=== PATIENT | female | born 1935 | race Caucasian/White ===

== ENCOUNTER 2017-07-13 13:19 | Inpatient (IN) ==
[2017-07-13] MEDS ORDERED: ONDANSETRON 4 MG/2 ML INJECTION IVP PRN (13:48)
[2017-07-13] MEDS ORDERED: ACETAMINOPHEN 325 MG TABLET PO PRN (13:49)
[2017-07-13] MEDS ORDERED: BISACODYL 10 MG SUPPOSITORY RECTALLY PRN (13:49)
[2017-07-13] MEDS ORDERED: HYDROCODONE/APAP 5mg/325mg TABLET PO PRN ×2 (13:50→14:57)
[2017-07-13] MEDS ORDERED: MORPHINE SULFATE 2 MG SYRINGE IVP PRN (13:51)
[2017-07-13] MEDS ORDERED: ENOXAPARIN 100 MG/ML INJECTION SQ SCH (14:00)
[2017-07-13 14:34] VITALS: BMI 34.2
[2017-07-13 14:36] VITALS: RESP 18
[2017-07-13] MEDS ORDERED: LORATADINE 10 MG TABLET PO PRN (14:57)
[2017-07-13] MEDS ORDERED: GUAIFENESIN LA 600 MG TABLET PO PRN (14:57)
[2017-07-13] MEDS ORDERED: Bisacodyl EC TAB 5 MG TABLET PO PRN (14:57)
[2017-07-13] MEDS ORDERED: NITROGLYCERIN 0.4 MG SUBLINGUAL TABLET SL PRN (14:57)
--- NOTE | 2017-07-13 15:20 | History & Physical Report ---
<Carol Ann Roberto V - Last Filed: 07/13/17 15:17> History of Present Illness Date: 07/13/17 Chief complaint: Bilateral PE HPI: Kristyn is a pleasant 81-year-old female who presented to see her primary care provider, Dr. Pérez today for evaluation of dyspnea. She reports that it has been ongoing for the past several weeks. She does have some right posterior chest wall discomfort. She has been checking her oxygen saturations at home and reports that readings are in the 80s following minimal exertion. Given this persistent symptom, accompanied with her increased dyspnea. She was evaluated acutely today. Outpatient CT scan of the chest was performed of that unfortunately did reveal large amount of bilateral pulmonary emboli as well as a left lower lobe consolidation. Ambulatory oximetry obtained in the clinic, O2 sats 87% on room air. Even these findings. Patient was directed to [facility] for direct admission under care of Dr. Majano for further evaluation and treatment. On arrival Kristyn is seen and examined. She does note has been short of breath for several weeks. She reports that in April she did take a seven-day road trip and drove to the [facility]. Has not noticed any lower extremity pain. Patient reports she does take aspirin 650 milligrams daily for chronic anticoagulation and reports this is for her "atrial fibrillation". She also reports that she is has not been in atrial fibrillation for an unknown amount of time. She did undergo a CABG in 2016 and at that time did have a right-sided pneumothorax. 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 We did review advanced directives and she does verify her wishes to be a full code. Review of Systems Comprehensive ROS: completed and no additional positive findings except those as stated - Constitutional Constitutional: Present: fatigue - Cardiovascular Cardiovascular: Present: dyspnea on exertion - Respiratory Respiratory: Present: dyspnea PFSH Patient Stated Medical History History of atrial fibrillation Hypertension Coronary artery disease Dyslipidemia Peripheral artery disease. Next, and osteoarthritis. 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 Hysterectomy-total. Appendectomy. Tonsillectomy. Colonoscopy Family History: Father.-Brain cancer Mother-congestive heart failure Sister-leukemia - Social History Smoking status: Former smoker (quit 7 years ago) Substance use type: does not use Alcohol intake frequency: does not drink Current residence: Apartment/Private Home Social history: Primary care provider, Dr. Jo. 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 Silverio Medications Home Medications Medication Instructions Recorded Confirmed Type Dronedarone [Multaq] 400 mg PO BID #180 07/24/15 07/13/17 History Losartan Potassium 50 mg PO DAILY #30 07/24/15 07/13/17 History Sertraline HCl 50 mg PO DAILY #90 07/24/15 07/13/17 History Hydralazine [Apresoline] 25 mg PO BID 06/05/17 07/13/17 History Isosorbide Dinitrate [Isordil] 10 mg PO BID 06/05/17 07/13/17 History Lansoprazole [Prevacid] 30 mg PO DAILY 06/05/17 07/13/17 History Aspirin [ASA] 2 tab PO DAILY 07/13/17 07/13/17 History Bisacodyl EC Tab [Dulcolax] 5 mg PO PRN PRN 07/13/17 07/13/17 History Loratadine 10 mg PO PRN PRN 07/13/17 07/13/17 History Milk of Magnesia [Mom] 30 ml PO PRN 07/13/17 07/13/17 History Miralax 17 gm PO PRN PRN 07/13/17 07/13/17 History Nitroglycerin [Nitrostat] 0.4 mg SL PRN PRN 07/13/17 07/13/17 History Prevacid 30 mg PO DAILY 07/13/17 07/13/17 History guaiFENesin [Mucinex] 600 mg PO PRN PRN 07/13/17 07/13/17 History Allergies Allergy/AdvReac Type Severity Reaction Status Date / Time codeine Allergy Severe Unconscious Verified 06/05/17 12:32 meloxicam Allergy Intermediate Verified 06/05/17 12:32 Penicillins Allergy Intermediate RASH Verified 06/05/17 12:32 meperidine Allergy Unknown Verified 06/05/17 12:32 tetracycline Allergy Unknown Verified 06/05/17 12:32 [id number] Reductase Allergy troubles Verified 07/13/17 14:23 Inhibitor breathing diphenhydramine AdvReac Intermediate Redness of Verified 06/05/17 12:37 Skin Unclassified Drug Allergy Severe LOCAL Uncoded 07/26/16 16:04 ANESTHETIC Exam Vital Signs: Temperature 95.9 F L 07/13/17 14:21 Pulse Rate 62 07/13/17 14:21 Respiratory Rate 18 07/13/17 14:21 Blood Pressure 122/68 07/13/17 14:21 Pulse Oximetry 92 07/13/17 14:21 Height/Weight/BMI: Height 1.6 m Weight 87.5 kg Body Mass Index 34.2 - Constitutional Present: no acute distress - Routine HEENT Exam Head: Present: normocephalic Eye: Present: EOMI ENT: Present: mucous membranes moist, dentition normal - Routine Respiratory Exam Present: CTA bilaterally - Routine Cardiovascular Exam Present: RRR, S1, S2 - Routine Abdominal Exam Present: soft, normoactive bowel sounds, non distended. Absent: tenderness - Routine Extremities Exam Present: edema (trace bilateral lower ext), normal capillary refill - Routine Back/Spine/Pelvis Exam Back/Spine: Present: full ROM - Routine Skin Exam Present: intact, dry, warm - Routine Neurological Exam Present: alert, oriented X3, CN II-XII intact, moving all extremities - Routine Psychiatric Exam Present: normal affect, normal thought process Assessment and Plan (1) Bilateral pulmonary embolism Current visit: Yes Status: Acute (2) Atrial fibrillation Current visit: Yes Status: Acute (3) HTN (hypertension) Current visit: Yes Status: Acute (4) Coronary artery disease Current visit: Yes Status: Acute (5) History of post-polio syndrome Current visit: Yes Status: Acute (6) PAD (peripheral artery disease) Current visit: Yes Status: Acute (7) GERD (gastroesophageal reflux disease) Current visit: Yes Status: Acute (8) Dyslipidemia Current visit: Yes Status: Acute DVT Prophylaxis: Lovenox Resuscitation Status: Full Code Assessment and Plan: Admit patient to outpatient observation and care of Dr. Majano for bilateral pulmonary emboli and hypoxia with exertion. Will obtain the following lab for studies on admission, CBC, CMP, INR, magnesium , troponin, urinalysis. Will obtain a 12-lead EKG to rule out ischemia given multiple bilateral pulmonary emboli. Monitor patient. Cardiac telemetry. Detailed discussion with patient and regarding chronic anticoagulation plans. Will initiate Lovenox 130 milligrams subcutaneous daily. They would like to consult with family members who are in the healthcare setting regarding Xarelto versus warfarin. Will discuss with them later. Monitor blood pressure and continue on current regimen of multi, isosorbide, Cozaar. Will monitor oxygen saturations and utilize O2 as needed. At rest, oxygen saturations 90-91% during examination. Likely need to evaluate ambulatory oximetry as patient may require home oxygen. Tylenol or morphine as needed for pain control. Recheck CBC and BMP tomorrow morning Discuss further orders and plan of care with attending, Dr. Majano Time of discharge medical care will return to primary care provider, Dr. Pérez Sepsis Assessment - Evaluation Sepsis screening result: No Definite Risk Hospital Course Summary Disclaimer: The visit summary below is not to be considered part of the above Progress Note. Hospital Course: 07/13/17 initial admission Admit patient to outpatient observation and care of Dr. Majano for bilateral pulmonary emboli and hypoxia with exertion. Will obtain the following lab for studies on admission, CBC, CMP, INR, magnesium , troponin, urinalysis. Will obtain a 12-lead EKG to rule out ischemia given multiple bilateral pulmonary emboli. Monitor patient. Cardiac telemetry. Detailed discussion with patient and regarding chronic anticoagulation plans. Will initiate Lovenox 130 milligrams subcutaneous daily. They would like to consult with family members who are in the healthcare setting regarding Xarelto versus warfarin. Will discuss with them later. Monitor blood pressure and continue on current regimen of multi, isosorbide, Cozaar. Will monitor oxygen saturations and utilize O2 as needed. At rest, oxygen saturations 90-91% during examination. Likely need to evaluate ambulatory oximetry as patient may require home oxygen. Tylenol or morphine as needed for pain control. Recheck CBC and BMP tomorrow morning Discuss further orders and plan of care with attending, Dr. Majano Time of discharge medical care will return to primary care provider, Dr. Pérez <Kyle Majano - Last Filed: 07/13/17 18:08> History of Present Illness Date: 07/13/17 [facility] Patient Stated Medical History Other HEENT Yes: WEARS GLASSES Cardiac Arrhythmia Yes: AFIB Coronary Artery Disease Yes Hypertension Yes Myocardial Infarction Yes Valvular Heart Disease Yes Other Respiratory Yes: PNEUMOTHORAX AFTER CABG Ulcer Yes Other GI Yes: DIVERTICULITIS,ISCHEMIC COLITIS Shingles Yes Other Infectious Yes: HX OF POLIO Exam Vital Signs: Temperature 95.5 F L 07/13/17 16:00 Pulse Rate 57 L 07/13/17 16:00 Respiratory Rate 18 07/13/17 16:00 Blood Pressure 149/75 H 07/13/17 16:00 Pulse Oximetry 90 07/13/17 16:00 Height/Weight/BMI: Height 1.6 m Weight 87.5 kg Body Mass Index 34.2 Results - Labs CBC & Chem 7: 07/13/17 15:34 07/13/17 15:34 Assessment and Plan (1) Bilateral pulmonary embolism Current visit: Yes Status: Acute (2) Atrial fibrillation Current visit: Yes Status: Acute (3) HTN (hypertension) Current visit: Yes Status: Acute (4) Coronary artery disease Current visit: Yes Status: Acute (5) History of post-polio syndrome Current visit: Yes Status: Acute (6) PAD (peripheral artery disease) Current visit: Yes Status: Acute (7) GERD (gastroesophageal reflux disease) Current visit: Yes Status: Acute (8) Dyslipidemia Current visit: Yes Status: Acute Assessment and Plan: Assessment Bilateral pulmonary embolism Dyspnea with exertion Atrial fibrillation HTN (hypertension) Coronary artery disease History of post-polio syndrome PAD (peripheral artery disease) GERD (gastroesophageal reflux disease) Dyslipidemia History of post-polio syndrome Have independently interviewed and examined pt. Chart reviewed. 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 Care plan developed with my supervision; agree with above. Presents to clinic secondary to increasing SOA. Noticed over the last 10 days of so she id more winded with activities. Very hard to walk up the stairs without developing SOA and tachycardia. No cough or congestion. Denies pain with breathing. No f/c. Was seen in ED on 06/05 secondary to flank and back pain - very miserable at that time but improved. Really doing well until last 10 days. Reports eating well. Stools stable. Urinating well. Did see Dr Pérez in clinic today - CT PE protocol showed numerous bilateral PE. Admitted to inpatient for treatment and respiratory monitoring. Lungs: decreased CV: regular AB: soft nt/nd +BS MSE: awake alert appropriate Plan: Inpatient admission to [facility] for treatment of Bilateral pulmonary emboli - anticipate greater than 2 midnights of care needed. Start Lovenox due to PE. 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 They are favoring Xarelto. Will need 15mg BID with meals for 21 day before changing to 20mg with supper. Control pain. Monitor oxygenation - very surprising pt maintaining saturations as well as see is with the emboli burden. Will need to evaluate for home O2 needs prior to discharge. ECHO due to cardiomegaly seen on CTA - suspect right heart strain from PE. Will give 1L on 1/2 NS at 75cc/hr to help provide renal protection from IV dye load given earlier today. Recheck Lab in am. Hospital Course Summary Disclaimer: The visit summary below is not to be considered part of the above Progress Note.
[2017-07-13] MEDS ORDERED: ENOXAPARIN 150 MG/ML INJECTION SQ SCH (15:30)
[2017-07-13] MEDS ORDERED: 1/2 NS 1,000 ML IV SCH (17:45)
[2017-07-13] MEDS: --POM--HYDRALAZINE 25 MG TABLET PO SCH (19:16)
[2017-07-13] MEDS: DRONEDARONE 400 MG PO SCH (21:21)
[2017-07-13] MEDS: ISOSORBIDE DINITRATE 10 MG TABLET PO SCH (21:27)
[2017-07-14] MEDS ORDERED: --POM--PANTOPRAZOLE 40 MG TABLET PO SCH (06:30)
[2017-07-14 08:00] VITALS: BP 165/87; TEMP 97.7
[2017-07-14] MEDS ORDERED: RIVAROXABAN 15 MG TABLET PO SCH (08:30)
[2017-07-14] MEDS: --POM--HYDRALAZINE 25 MG TABLET PO SCH (08:31)
[2017-07-14] MEDS: ISOSORBIDE DINITRATE 10 MG TABLET PO SCH ×2 (08:33→13:50)
[2017-07-14] MEDS: DRONEDARONE 400 MG PO SCH (08:34)
[2017-07-14] MEDS ORDERED: SERTRALINE 50 MG PO SCH (09:00)
[2017-07-14] MEDS ORDERED: --POM--LOSARTAN 50 MG TABLET PO SCH (09:00)
[2017-07-14 10:04] VITALS: PULSE 68; O2SAT 94
--- NOTE | 2017-07-14 14:41 | Progress Note ---
Subjective: F/U: Bilateral pulmonary emboli, dyspnea with exertion. Doing much better today. Breathing feels easier. Still notes SOA with activities , but improved from yesterday. No pain with breathing. Denies cough or congestion. No chest pain. Eating well. No ab pain or discomfort. Ambulating well. Feels ready for discharge to home. Objective Vital signs: Temperature 97.7 F 07/14/17 07:58 Pulse Rate 68 07/14/17 09:59 Respiratory Rate 18 07/14/17 07:58 Blood Pressure 165/87 H 07/14/17 07:58 Pulse Oximetry 94 07/14/17 09:59 Height/Weight/BMI: Height 1.6 m Weight 86.4 kg Body Mass Index 34.2 - Constitutional Present: no acute distress, well nourished, well developed, obese, cooperative - Routine HEENT Exam Head: Present: normocephalic, atraumatic Eye: Present: EOMI, PERRL ENT: Present: mucous membranes moist - Routine Respiratory Exam Present: decreased breath sounds, distant breath sounds. Absent: respiratory distress, wheezes, crackles - Routine Cardiovascular Exam Present: RRR - Routine Abdominal Exam Present: soft, normoactive bowel sounds, non distended, non tender - Routine Extremities Exam Present: cyanosis, clubbing. Absent: no edema - Routine Musculoskeletal Exam Musculoskeletal: Present: no clubbing or cyanosis, normal strength - Routine Skin Exam Present: intact, warm, normal turgor - Routine Neurological Exam Present: alert, oriented X3, CN II-XII intact, vision grossly intact, hearing grossly intact. Absent: motor deficit - Routine Psychiatric Exam Present: normal affect, normal thought process, cooperative, good insight, good judgment Results - Labs CBC & Chem 7: 07/14/17 04:40 07/14/17 04:40 Assessment and Plan (1) Bilateral pulmonary embolism Current visit: Yes Status: Acute (2) Atrial fibrillation Current visit: Yes Status: Acute (3) HTN (hypertension) Current visit: Yes Status: Acute (4) Coronary artery disease Current visit: Yes Status: Acute (5) History of post-polio syndrome Current visit: Yes Status: Acute (6) PAD (peripheral artery disease) Current visit: Yes Status: Acute (7) GERD (gastroesophageal reflux disease) Current visit: Yes Status: Acute (8) Dyslipidemia Current visit: Yes Status: Acute DVT Prophylaxis: Xarelto Assessment and Plan: Assessment Bilateral pulmonary embolism Dyspnea with exertion Atrial fibrillation HTN (hypertension) Coronary artery disease History of post-polio syndrome PAD (peripheral artery disease) GERD (gastroesophageal reflux disease) Dyslipidemia History of post-polio syndrome Plan Xarelto stared this morning for treatment of PE. Discussed with patient and her the signs and symptoms of bleeding to watch from. Evaluated for home O2 needs. Patient maintaining saturations on room air with both rest and activities. Did not meet criteria for home oxygen. Encouraged increasing activities as able - resting if gets tired and winded. Conditioning should improve gradually with time. Will discharge patient to home - follow up with Dr Pérez in 1 week. ECHO pending - can follow up with Dr Pérez See orders for details. Time spent with patient care and discharger greater than 30 minutes. - Time spent with patient discharge greater than 30 minutes Sepsis Assessment - Evaluation Sepsis screening result: No Definite Risk Hospital Course Summary Disclaimer: The visit summary below is not to be considered part of the above Progress Note. Hospital Course: 07/13/17 initial admission Admit patient to outpatient observation and care of Dr. Majano for bilateral pulmonary emboli and hypoxia with exertion. Will obtain the following lab for studies on admission, CBC, CMP, INR, magnesium , troponin, urinalysis. Will obtain a 12-lead EKG to rule out ischemia given multiple bilateral pulmonary emboli. Cardiac telemetry and continuous oximetry. Detailed discussion with patient and regarding chronic anticoagulation plans. Will initiate Lovenox 130 milligrams subcutaneous daily. They would like to consult with family members who are in the healthcare setting regarding Xarelto versus warfarin. Will discuss with them later. Monitor blood pressure and continue on current regimen of Multaq, isosorbide, Cozaar. Will monitor oxygen saturations and utilize O2 as needed. At rest, oxygen saturations 90-91% during examination. Need to evaluate ambulatory oximetry as patient may require home oxygen due to bilateral pulmonary emboli. Tylenol or morphine as needed for pain control. Recheck CBC and BMP tomorrow morning. At time of discharge, medical care will return to primary care provider, Dr. Pérez. 07/14/17 Xarelto stared this morning for treatment of PE. Discussed with patient and her the signs and symptoms of bleeding to watch from. Evaluated for home O2 needs. Patient maintaining saturations on room air with both rest and activities. Did not meet criteria for home oxygen. Encouraged increasing activities as able - resting if gets tired and winded. Conditioning should improve gradually with time. Will discharge patient to home - follow up with Dr Pérez in 1 week. ECHO pending - can follow up with Dr Pérez See orders for details.
--- NOTE | 2017-07-14 14:59 | Discharge Summary ---
Discharge Information Date of admission: 07/14/17 Anticipated date of discharge: 07/14/17 Attending Physician: Kyle Majano MD Primary care physician: Blaine Pérez MD - Discharge Diagnosis Discharge Diagnosis: Bilateral pulmonary embolism Associated conditions and complications Dyspnea with exertion Atrial fibrillation HTN (hypertension) Coronary artery disease History of post-polio syndrome PAD (peripheral artery disease) GERD (gastroesophageal reflux disease) Dyslipidemia History of post-polio syndrome - Procedures Procedures: ECHO - result pending at discharge. - Laboratory Labs: Admit Lab 07/13/17 07/13/17 07/13/17 15:34 15:34 15:34 WBC 8.6 Hgb 12.6 Hct 38.8 MCV 91.5 Plt Count 192 Neut % (Auto) 72.0 H Lymph % (Auto) 19.2 L INR 1.12 Sodium 142 Potassium 4.5 Chloride 107 Carbon Dioxide 23 BUN 23.0 H Creatinine 1.0 GFR Calculation 53 Glucose 126 H Calculated Osmolality 279 Calcium 9.0 Magnesium 2.2 Total Bilirubin 0.60 AST 26 ALT 24 Troponin I < 0.012 07/14/17 04:40 07/14/17 04:40 - Radiology Radiology: Date of Exam: 07/13/17 Type of Exam: CT angio pulm emboli Impression: 1. Large amount of bilateral pulmonary embolus. No obvious CT evidence of right heart strain, however urgent cardiology evaluation is recommended. 2. Left lower lobe consolidation could represent atelectasis, pneumonia, pulmonary hemorrhage or developing pulmonary infarct. History of Present Illness HPI: Kristyn is a pleasant 81-year-old female who presented to see her primary care provider, Dr. Pérez today for evaluation of dyspnea. She reports that it has been ongoing for the past several weeks. She does have some right posterior chest wall discomfort. She has been checking her oxygen saturations at home and reports that readings are in the 80s following minimal exertion. Given this persistent symptom, accompanied with her increased dyspnea. She was evaluated acutely today. Outpatient CT scan of the chest was performed of that unfortunately did reveal large amount of bilateral pulmonary emboli as well as a left lower lobe consolidation. Ambulatory oximetry obtained in the clinic, O2 sats 87% on room air. Even these findings. Patient was directed to [facility] for direct admission under care of Dr. Majano for further evaluation and treatment. On arrival rKistyn is seen and examined. She does note has been short of breath for several weeks. She reports that in April she did take a seven-day road trip and drove to the [facility]. Has not noticed any lower extremity pain. Patient reports she does take aspirin 650 milligrams daily for chronic anticoagulation and reports this is for her "atrial fibrillation". She also reports that she is has not been in atrial fibrillation for an unknown amount of time. She did undergo a CABG in 2016 and at that time did have a right-sided pneumothorax. 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 We did review advanced directives and she does verify her wishes to be a full code. For complete details of the H&P refer to that document. Objective Vital signs: Temperature 97.7 F 07/14/17 07:58 Pulse Rate 68 07/14/17 09:59 Respiratory Rate 18 07/14/17 07:58 Blood Pressure 165/87 H 07/14/17 07:58 Pulse Oximetry 94 07/14/17 09:59 Height/Weight/BMI: Height 1.6 m Weight 86.4 kg Body Mass Index 34.2 Hospital Course This is a general summary of the patient's hospital course. For more details refer to the complete medical record. Hospital course: 07/13/17 initial admission Admit patient to outpatient observation and care of Dr. Majano for bilateral pulmonary emboli and hypoxia with exertion. Will obtain the following lab for studies on admission, CBC, CMP, INR, magnesium , troponin, urinalysis. Will obtain a 12-lead EKG to rule out ischemia given multiple bilateral pulmonary emboli. Cardiac telemetry and continuous oximetry. Obtain ECHO secondary to right heart strain noted on CTA. Detailed discussion with patient and regarding chronic anticoagulation plans. Will initiate Lovenox 130 milligrams subcutaneous daily. They would like to consult with family members who are in the healthcare setting regarding Xarelto versus warfarin. Will discuss with them later. Monitor blood pressure and continue on current regimen of Multaq, isosorbide, Cozaar. Will monitor oxygen saturations and utilize O2 as needed. At rest, oxygen saturations 90-91% during examination. Need to evaluate ambulatory oximetry as patient may require home oxygen due to bilateral pulmonary emboli. Tylenol or morphine as needed for pain control. Patient give 1L of IVF for renal protection due to IV contrast use. Recheck CBC and BMP tomorrow morning. At time of discharge, medical care will return to primary care provider, Dr. Pérez. 07/14/17 Xarelto stared this morning for treatment of PE. Discussed with patient and her the signs and symptoms of bleeding to watch from. Creatinine stable. Respiratory status stable to improved - noted breathing easier. Not requiring oxygen. Evaluated for home O2 needs. Patient maintaining saturations on room air with both rest and activities. Did not meet criteria for home oxygen. Encouraged increasing activities as able - resting if gets tired and winded. Conditioning should improve gradually with time. Will discharge patient to home - follow up with Dr Pérez in 1 week. ECHO pending - can follow up with Dr Pérez. See orders for details. Time spent with patient: discharge greater than 30 minutes DVT Prophylaxis: Xarelto Discharge Plan - Med Rec/Dispo Referrals/Follow Up: Blaine Pérez MD [Family Provider] - Prescriptions: New Aspirin [Low Dose Aspirin EC] 81 mg PO DAILY #1 bottle Rivaroxaban [Xarelto] 15 mg PO BIDWM #41 tab Rivaroxaban [Xarelto] 20 mg PO WS #30 tab Continue Hydralazine [Apresoline] 25 mg PO BID Hydrocodone/APAP 5/325 [[place] 5/325] 1 tab PO Q6HPRN PRN #12 tablet PRN Reason: Pain guaiFENesin [Mucinex] 600 mg PO PRN PRN PRN Reason: Chest Pain Bisacodyl EC Tab [Dulcolax] 5 mg PO PRN PRN PRN Reason: Constipation Miralax 17 gm PO PRN PRN PRN Reason: Constipation Milk of Magnesia [Mom] 30 ml PO PRN Nitroglycerin [Nitrostat] 0.4 mg SL PRN PRN PRN Reason: Chest Pain Sertraline HCl 50 mg PO DAILY #90 Dronedarone [Multaq] 400 mg PO BID #180 Losartan Potassium 50 mg PO DAILY #30 Isosorbide Dinitrate [Isordil] 10 mg PO BID Lansoprazole [Prevacid] 30 mg PO DAILY Loratadine 10 mg PO PRN PRN PRN Reason: Allergy Symptoms Discontinued Prevacid 30 mg PO DAILY Aspirin [ASA] 2 tab PO DAILY Discharge Instructions/Outpatient Orders: Final Provider Discharge Instructions Location: Determined By Patient - Disposition 01 Discharged Home, Self-Care - Attestation Attestation Narrative: 07/14/17 15:16 I have independently interviewed and examined patient prior to discharge. See progress note form today for details. Medically stable for discharge to home.
[2017-07-14] MEDS ORDERED: ISOSORBIDE DINITRATE 10 MG TABLET PO SCH (20:00)
--- NOTE | 2017-07-15 17:29 | Echocardiogram ---
DATE OF STUDY 07/14/2017 INDICATIONS Pulmonary embolus. TECHNICAL QUALITY Technically good 2D, M-mode, Doppler echocardiographic images were submitted for interpretation. FINDINGS 1. CARDIAC CHAMBERS: Left side cardiac chambers are normal in size. The left atrium measures 4.0 cm, upper normal range. The aortic root diameter is normal. Right ventricle appears mildly enlarged. Moderate hypokinesis of the free wall is noted. 2. LEFT VENTRICLE: Mild concentric LVH per measurement. Visually appears to be borderline. Normal wall motion. Normal systolic function. Normal ejection fraction of 70%. There is diastolic dysfunction grade 1/4 with inverted E/A ratio. 3. VALVES: Aortic valve is trileaflet and exhibits sclerosis. Valve opening is normal. Mitral valve exhibits mild sclerosis. Valve excursion is normal. Tricuspid valve structure and motion appear normal. Normal valve excursion. 4. DOPPLER: Mild mitral regurgitation. Normal flow velocities throughout. Mild pulmonic insufficiency and very mild tricuspid regurgitation. Systolic PA pressure is estimated at 44 mmHg per Bernoulli equation. 5. No evidence of pericardial effusion, intracardiac masses or demonstrable shunts. 6. Central venous pressure is normal. IMPRESSION 1. Mild RV enlargement with moderate hypokinesis. 2. Mild pulmonary hypertension. 3. Normal central venous pressure. 4. Mild mitral regurgitation. 5. Aortic valve sclerosis without stenosis. 6. Borderline LVH with normal systolic function, EF 70%, and mild diastolic dysfunction. 7. Mild pulmonic insufficiency. MTDD
== END 2017-07-14 15:41 | disposition home or self-care (01) | DRG 176 ==
LOC: MED
PROVIDERS: ADMIT Hospitalist; ATTEND Hospitalist